=== PATIENT | female | born 1985 | race American Indian/Alaskan Native ===

== ENCOUNTER 2020-07-12 15:48 | Outpatient (CLI) | payer OTHER ==
[~2020-07-12 15:48] MED LIST: ALDOMET500 MG PO; PRENATAL 19 TA1 EACH PO
== END 2020-07-12 18:12 | disposition home or self-care (01) ==
LOC: NST 15:48
PROVIDERS: ATTEND Obstetrics & Gynecology
DX: Z34.83 Encounter for supervision of other normal pregnancy, third trimester (principal)

== ENCOUNTER 2020-08-02 15:34 | Outpatient (CLI) | payer OTHER | END 2020-08-02 16:00 | disposition home or self-care (01) | LOC: NST 15:34 | PROVIDERS: ATTEND Obstetrics & Gynecology Maternal & Fetal Medicine | DX: Z34.83 Encounter for supervision of other normal pregnancy, third trimester (principal) ==

== ENCOUNTER 2020-08-12 15:37 | Inpatient (IN) | payer OTHER ==
[~2020-08-12] VITALS: Ht 170.2 cm; Wt 2.3 kg
[2020-08-12] MEDS ORDERED: ADULT ASPIRIN81 MG PO (18:20)
== END 2020-08-16 13:11 | disposition home or self-care (01) | DRG 784 ==
LOC: LDR 15:37 → O/R 08-13 16:42 → OB/GYN 08-13 19:45
PROVIDERS: ADMIT Obstetrics & Gynecology Maternal & Fetal Medicine; ATTEND Obstetrics & Gynecology Maternal & Fetal Medicine
PROC: 4A1HXFZ Monitoring of Products of Conception, Cardiac Rhythm, External Approach (ICD-10-PCS; 2020-08-12)
PROC: 0UB70ZZ Excision of Bilateral Fallopian Tubes, Open Approach (ICD-10-PCS; 2020-08-13)
PROC: 10D00Z1 Extraction of Products of Conception, Low, Open Approach (ICD-10-PCS; principal; 2020-08-13 16:15)
DX: O64.1XX0 Obstructed labor due to breech presentation, not applicable or unspecified (principal); O41.03X0 Oligohydramnios, third trimester, not applicable or unspecified; O10.913 Unspecified pre-existing hypertension complicating pregnancy, third trimester; Z30.2 Encounter for sterilization; Z37.0 Single live birth; Z3A.34 34 weeks gestation of pregnancy; Z20.828 Contact with and (suspected) exposure to other viral communicable diseases